=== PATIENT | female | born 2000 | race Hispanic/Latino ===

== ENCOUNTER 2022-01-13 14:17 | Emergency (ER) | payer OTHER ==
[~2022-01-13] VITALS: Ht 162.6 cm; Wt 70.4 kg
[2022-01-13] MEDS ORDERED: FAMOTIDINE40 MG PO (15:36)
[2022-01-13] MEDS ORDERED: FAMOTIDINE 20 MG TAB PO ONE (15:45)
[2022-01-13] MEDS ORDERED: MAGNESIUM/ALUMINUM/SIMETHICONE 30 ML UDC PO ONE (15:45)
[2022-01-13] MEDS ORDERED: MAGNESIUM/ALUMINUM/SIMETHICONE 30 ML UDC ONE (15:50)
[2022-01-13] MEDS ORDERED: FAMOTIDINE 20 MG/2 ML VIAL IV ONE (15:50)
== END 2022-01-13 15:54 | disposition home or self-care (01) ==
LOC: FSED 14:42
DX: O26.892 Other specified pregnancy related conditions, second trimester (principal); O21.9 Vomiting of pregnancy, unspecified; R07.9 Chest pain, unspecified; K21.9 Gastro-esophageal reflux disease without esophagitis
CPT/HCPCS: 80053; 81003; 81025; 82553; 84484; 85025; 85379; 93005; 96374; 99284

== ENCOUNTER 2022-01-13 16:06 | Emergency (ER) | payer OTHER ==
[~2022-01-13] VITALS: Ht 162.6 cm; Wt 70.3 kg
[~2022-01-13 16:06] MED LIST: FAMOTIDINE40 MG PO
== END 2022-01-13 17:27 | disposition home or self-care (01) ==
LOC: ER 16:16
DX: R10.12 Left upper quadrant pain (principal); K29.70 Gastritis, unspecified, without bleeding
CPT/HCPCS: 99283